=== PATIENT | male | born 1980 | race Caucasian/White ===

== ENCOUNTER 2016-07-15 17:35 | Emergency (ER) | payer BC ==
[~2016-07-15] VITALS: Ht 185.4 cm; Wt 83.9 kg
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
[2016-07-15] MEDS ORDERED: MORPHINE SULFATE INJ 4 MG/ML DISP.SYRIN ONE ×2 (18:07→19:38)
[2016-07-15] MEDS ORDERED: TDAP [DIPH/PERTUSSIS/TET] 0.5 ML VIAL IM ONE ×2 (18:08→18:30)
[2016-07-15] MEDS ORDERED: ONDANSETRON HCL/PF 4 MG/2 ML VIAL ONE (18:08)
--- NOTE | 2016-07-15 18:28 | NUR ---
pain meds given as ordered
[2016-07-15] MEDS ORDERED: MORPHINE SULFATE INJ 2 MG/ML DISP.SYRIN IV ONE ×2 (18:30→19:30)
[2016-07-15] MEDS ORDERED: ONDANSETRON HCL/PF 4 MG/2 ML VIAL IV ONE (18:30)
[2016-07-15] MEDS ORDERED: KETOROLAC TROMETHAMINE INJ 30 MG/ML VIAL IV ONE (20:00)
[2016-07-15] MEDS ORDERED: KETOROLAC TROMETHAMINE INJ 30 MG/ML VIAL ONE (20:31)
--- NOTE | 2016-07-15 20:46 | NUR ---
Patient discharged to home in stable condition. Written and verbal after care instructions given. Patient verbalizes understanding of instruction. R shoulder immobilizer placed by [employer].
[2016-07-15 20:49] VITALS: BP 127/64
== END 2016-07-15 20:51 | disposition home or self-care (01) ==
LOC: ER 17:37
DX: S42.001A Fracture of unspecified part of right clavicle, initial encounter for closed fracture (principal); S40.011A Contusion of right shoulder, initial encounter; S30.811A Abrasion of abdominal wall, initial encounter; V87.8XXA Person injured in other specified noncollision transport accidents involving motor vehicle (traffic), initial encounter; Y93.89 Activity, other specified; Y92.89 Other specified places as the place of occurrence of the external cause; Y99.9 Unspecified external cause status
CPT/HCPCS: 29105; 71010; 73000; 73030; 90471; 90715; 96374; 96375; 96376; 99284; A4606; J1885; J2270 ×2; J2405; Z7610